=== PATIENT | female | born 1985 | race Hispanic/Latino ===

== ENCOUNTER 2018-02-27 08:35 | Inpatient (IN) | payer BC ==
--- NOTE | 2018-02-27 09:01 | ED PDOC ---
Arrival/HPI - History of Present Illness Time/Duration: 1-3 hours Symptom Onset: Sudden Quality: Stabbing Activities at Onset: Light Context: Home <Thelma Stratton - Last Filed: 02/27/18 16:21> <Tobi Parsons DO - Last Filed: 02/27/18 16:46> - General Time Seen by Provider: 02/27/18 08:47 - History of Present Illness Narrative History of Present Illness (Text): 02/27/18 09:01 This is a 32 year old female with no PMH presenting with left knee pain that began today. Pain began suddenly while walking on flat surface and felt a twising sensation in the left anterior knee region and is currently rated 10/ 10. Patient admits to swelling in the left knee over the last month but no pain. Patient denies trauma to the area, and increase in daily routine. She is currently unable to put any weight on the knee due to pain. She had a stress fracture in the left knee five years ago while training for the [employer] but no issues since. Denies chest pain, calf tenderness, SOB, headaches, loss of sensation in the pelvic area and extremities, diarrhea and abdominal pain. (Thelma Stratton) Past Medical History - Provider Review Nursing Documentation Reviewed: Yes - Musculoskeletal/Rheumatological Hx Fractures: Yes (stress fracture to left knee and ankle) - Psychiatric Hx Substance Use: No <Thelma Stratton - Last Filed: 02/27/18 16:21> Family/Social History - Physician Review Nursing Documentation Reviewed: Yes Family/Social History: Unknown Family HX Smoking Status: Never Smoked Hx Alcohol Use: No Hx Substance Use: No <Thelma Stratton - Last Filed: 02/27/18 16:21> Allergies/Home Meds <Thelma Stratton - Last Filed: 02/27/18 16:21> <Tobi Parsons DO - Last Filed: 02/27/18 16:46> Allergies/Adverse Reactions: Allergies No Known Allergies Allergy (Verified 02/27/18 08:46) Home Medications: Home Meds Medication Instructions Recorded Confirmed No Known Home Med 02/27/18 02/27/18 Review of Systems - Physician Review All systems were reviewed & negative as marked: Yes - Review of Systems Constitutional: Normal Eyes: Normal. absent: Vision Changes, Photophobia, Eye Pain, Other ENT: Normal Respiratory: Normal Cardiovascular: Normal Gastrointestinal: Normal Genitourinary Female: Normal Musculoskeletal: Joint Swelling. absent: Arthralgias Skin: Normal Neurological: Normal. absent: Headache, Dizziness Psychiatric: Normal <LamonteRadha ornelasarun - Last Filed: 02/27/18 16:21> Physical Exam Vital Signs Reviewed: Yes Temperature: Afebrile Blood Pressure: Normal Pulse: Regular Respiratory Rate: Normal Appearance: Positive for: Well-Appearing, Non-Toxic, Comfortable Pain Distress: None Mental Status: Positive for: Alert and Oriented X 3 - Systems Exam Head: Present: Atraumatic, Normocephalic Pupils: Present: PERRL Extroacular Muscles: Present: EOMI Conjunctiva: Present: Normal Mouth: Present: Moist Mucous Membranes Neck: Present: Normal Range of Motion Respiratory/Chest: Present: Clear to Auscultation, Good Air Exchange. No: Respiratory Distress, Accessory Muscle Use Cardiovascular: Present: Regular Rate and Rhythm, Normal S1, S2, Peripheal Pulses Present. No: Murmurs Abdomen: No: Tenderness, Distention, Peritoneal Signs Back: Present: Normal Inspection Upper Extremity: Present: Normal Inspection. No: Cyanosis, Edema Lower Extremity: Present: NORMAL PULSES, Swelling, Other (anterior left knee swelling and tenderness). No: CALF TENDERNESS Neurological: Present: Speech Normal, Motor Func Grossly Intact, Normal Sensory Function Skin: Present: Warm, Dry, Normal Color. No: Rashes Psychiatric: Present: Alert, Oriented x 3, Normal Insight, Normal Concentration <LamontececiRadhaarun - Last Filed: 02/27/18 16:21> Vital Signs Temp Pulse Resp BP Pulse Ox 02/27/18 15:26 70 18 90/58 L 98 02/27/18 11:52 98.6 F 72 18 97/59 L 98 02/27/18 08:47 98.1 F 95 H 18 126/66 97 Medical Decision Making <LamontececiThelma - Last Filed: 02/27/18 16:21> <Tobi Parsons DO - Last Filed: 02/27/18 16:46> ED Course and Treatment: 02/27/18 09:07 This is a 32 year old female with no PMH presents with left knee pain that began today. Differential: left knee fracture Plan: Xray and CT Progress: Called ortho, requested MRI. Will admit, surgery tomorrow. (Thelma Stratton) A 32 year old female with left knee pain. In agreement with resident note, which includes further HPI details. Patient was seen and evaluated with resident , came up with plan and treatment together. Attending note: Spoke with Dr. Blanchard regarding case. Patient to be brought to OR tomorrow as per ortho PA. Patient admitted to Dr. Sims on GMF. ( Tobi Parsons DO) - Lab Interpretations Lab Results: 02/27/18 12:50 02/27/18 12:50 Lab Results 02/27/18 12:50: Sodium 141, Potassium 4.2, Chloride 107, Carbon Dioxide 21, Anion Gap 17, BUN 16, Creatinine 0.7, Est GFR ( Amer) > 60, Est GFR (Non- Af Amer) > 60, Random Glucose 96, Calcium 9.3, Total Bilirubin 1.3, AST 22, ALT 19, Alkaline Phosphatase 43, Total Protein 7.7, Albumin 4.6, Globulin 3.1, Albumin/Globulin Ratio 1.5 02/27/18 12:50: PT 12.3, INR 1.07, APTT 26.1 02/27/18 12:50: WBC 8.4, RBC 4.53, Hgb 13.8, Hct 39.7, MCV 87.6, MCH 30.5, MCHC 34.8, RDW 12.1, Plt Count 358, MPV 9.4, Gran % 59.1, Lymph % (Auto) 32.6, [place] % (Auto) 5.8, Eos % (Auto) 2.0, Baso % (Auto) 0.5, Gran # 4.95, Lymph # (Auto) 2.7, [place] # (Auto) 0.5, Eos # (Auto) 0.2, Baso # (Auto) 0.04 - RAD Interpretation Radiology Orders: 02/27/18 08:58 KNEE WITH PATELLA LEFT 3 VIEW [RAD] Stat 02/27/18 10:11 EXT LOWER W/O CONTRAST LEFT [CT] Stat 02/27/18 11:44 KNEE W/O CONTRAST LEFT [MRI] Stat - Medication Orders Current Medication Orders: Sodium Chloride (Sodium Chloride 0.9%) 1,000 mls @ 60 mls/hr IV .[id number] JOSE G Oxycodone/Acetaminophen (Percocet 5/325 Mg Tab) 1 tab PO Q4H PRN PRN Reason: Pain, moderate (4-7) Stop: 03/02/18 14:01 Discontinued Medications Ibuprofen (Motrin Tab) 600 mg PO STAT STA Stop: 02/27/18 08:59 Last Admin: 02/27/18 12:38 Dose: Not Given Non-Admin Reason: Patient Refused - PA / HAMMER DRIVER / Resident Statement MANJINDER has reviewed & agrees with the documentation as recorded. MANJINDER has examined the patient and agrees with the treatment plan. <Thelma Stratton - Last Filed: 02/27/18 16:21> - Scribe Statement The provider has reviewed the documentation as recorded by the Scribe <Tobi Parsons DO - Last Filed: 02/27/18 16:46> - Scribe Statement Brittni Doe Provider Scribe Attestation: All medical record entries made by the Scribe were at my direction and personally dictated by me. I have reviewed the chart and agree that the record accurately reflects my personal performance of the history, physical exam, medical decision making, and the department course for this patient. I have also personally directed, reviewed, and agree with the discharge instructions and disposition. (Tobi Parsons DO) Disposition/Present on Arrival - Present on Arrival Any Indicators Present on Arrival: No History of DVT/PE: No History of Uncontrolled Diabetes: No Urinary Catheter: No History of Decub. Ulcer: No History Surgical Site Infection Following: None - Disposition Have Diagnosis and Disposition been Completed?: Yes Disposition Time: 16:30 Patient Plan: Admission <Thelma Stratton - Last Filed: 02/27/18 16:21> - Disposition Disposition Time: 11:50 <Tobi Parsons DO - Last Filed: 02/27/18 16:46> - Disposition Diagnosis: Left knee injury Disposition: HOSPITALIZED Patient Problems: Current Active Problems Problem Status Onset Left knee injury Acute Osteochondral defect of femoral condyle Acute Locked knee Acute Condition: STABLE
--- NOTE | 2018-02-27 11:30 | CT ---
Date of service: 02/27/2018 PROCEDURE: CT of the left knee without contrast HISTORY: left knee pain r/o fx COMPARISON: TECHNIQUE: CT of the left knee was performed with sagittal and coronal reconstructions. FINDINGS: There is a large osteochondral defect in the medial femoral condyle involving the lateral articular surface. The defect measures 25 mm anterior to posterior and 5 mm in height and 12 mm in width. There is a a bony fragment within the osteochondral defect measuring 6 mm. There is a loose body adjacent to the tibial spine measuring 4 x 8 mm in size. IMPRESSION: Large osteochondral defect in the medial femoral condyle with associated loose body
--- NOTE | 2018-02-27 12:02 | RAD ---
Date of service: 02/27/2018 PROCEDURE: Left Knee Radiographs. HISTORY: Pain. COMPARISON: None. FINDINGS: BONES: There is a large osteochondral defect in the medial femoral condyle with an associated loose body JOINTS: Normal. No osteoarthritis. JOINT EFFUSION: None. OTHER FINDINGS: None. IMPRESSION: There is a large osteochondral defect in the medial femoral condyle with an associated loose body
[2018-02-27 12:59] LABS: BASO # 0.04 K/mm3 (0.0-2.0); BASO % 0.5 % (0.0-3.0); EOS # 0.2 (0.0-0.7); GRAN # 4.95 (1.4-6.5); GRAN % 59.1 % (50.0-68.0); HEMOGLOBIN 13.8 g/dL (12.0-16.0); LYMPH # 2.7 (1.2-3.4); LYMPH % 32.6 % (22.0-35.0); MEAN CELL VOLUME 87.6 fl (80.0-105.0); MEAN CORPUSCULAR HEMOGLOBIN 30.5 pg (25.0-35.0); MEAN CORPUSCULAR HGB CONC 34.8 g/dl (31.0-37.0); MEAN PLATELET VOLUME 9.4 fl (7.0-11.0); MONO # 0.5 (0.1-0.6); MONO % 5.8 % (1.0-6.0); RBC 4.53 10^6/uL (3.5-6.1); RED CELL DISTRIBUTION WIDTH 12.1 % (11.5-14.5); WHITE BLOOD COUNT 8.4 10^3/ul (4.5-11.0)
[2018-02-27 13:11] LABS: ALB/GLOB RATIO 1.5 (1.1-1.8); ALBUMIN 4.6 g/dL (3.0-4.8); ALT/SGPT 19 U/L (7-56); AST/SGOT 22 U/L (14-36); BLOOD UREA NITROGEN 16 mg/dL (7-21); CALCIUM 9.3 mg/dL (8.4-10.5); GFR AFRICAN-AMERICAN > 60; GFR NON-AFRICAN AMERICAN > 60
[2018-02-27 13:13] LABS: INR 1.07 (0.93-1.08); PARTIAL THROMBOPLASTIN TIME 26.1 Seconds (25.1-36.5); PROTHROMBIN TIME 12.3 SECONDS (9.4-12.5)
--- NOTE | 2018-02-27 13:49 | CP.PCM.CON ---
History of Present Illness - History of Present Illness History of Present Illness: Orthopedic consultation Dr. Blanchard 32F complains of severe left knee pain since this morning. Patient states she was getting ready in the morning as usual, and she felt severe pain in knee and heard crunching sound and after that was unable to walk or straighten her knee. She says she has been getting knee swelling mild off and on for last month without any pain or disability. She denies any recent trauma or falls. She says 6 years ago, she had knee injury and was diagnosed with "stress fracture' which she was seen and treated with PT and it improved. She does not have MRI or copy , patient was instructed to try to obtain results. No other pain, denies numbness/tingling/denies fever/chills Review of Systems - Review of Systems All systems: reviewed and no additional remarkable complaints except - Musculoskeletal Musculoskeletal: As Per HPI Past Patient History - Infectious Disease Hx of Infectious Diseases: None - Past Medical History & Family History Past Medical History?: No Past Family History: Reviewed and not pertinent - Past Social History Smoking Status: Never Smoked - MUSCULOSKELETAL/RHEUMATOLOGICAL Hx Fractures: Yes (stress fracture to left knee and ankle) - PSYCHIATRIC Hx Substance Use: No - SURGICAL HISTORY Hx Surgeries: No Meds Allergies/Adverse Reactions: Allergies Allergy/AdvReac Type Severity Reaction Status Date / Time No Known Allergies Allergy Verified 02/27/18 08:46 Physical Exam - Constitutional Appears: Well, No Acute Distress - Head Exam Head Exam: ATRAUMATIC - Respiratory Exam Respiratory Exam: NORMAL BREATHING PATTERN - Cardiovascular Exam Additional comments: +DP/PT pulses - Extremities Exam Additional comments: Left knee: ROM 30-full flexion. Severe pain with attempts at extension, mild joint effusion, sensation intact, non tender, no erythema, no laxity to varus/ valgus/jennifer/ant/post drawer, severe pain with mcmurrays. no patellar apprehension - Neurological Exam Neurological exam: Alert, Oriented x3 - Psychiatric Exam Psychiatric exam: Normal Affect, Normal Mood - Skin Skin Exam: Dry, Intact, Normal Color, Warm Results - Vital Signs Recent Vital Signs: Last Vital Signs Temp 98.6 F 02/27/18 11:52 Pulse 72 02/27/18 11:52 Resp 18 02/27/18 11:52 BP 97/59 L 02/27/18 11:52 Pulse Ox 98 02/27/18 11:52 - Labs Result Diagrams: 02/27/18 12:50 02/27/18 12:50 - Impressions Impression: Patient Name / ID : NINOSKA MADRID / [id number] Exam Date : 02/27/2018 13:32:51 ( Approved ) Study Comment : Sex / Age : F / 32Y Creator : Derek Rahman MD Dictator : Derek Rahman MD Fusing Machine Operator : Head Charrer : Derek Rahman MD Approver2 : Report Date : 02/27/2018 14:21:03 My Comment : Date of service: 02/27/2018 PROCEDURE: MRI Left Knee HISTORY: Pain. COMPARISON: None available. TECHNIQUE: Multiecho multiplanar sequences were performed through the left knee. FINDINGS: ANTERIOR CRUCIATE LIGAMENT:: Intact. POSTERIOR CRUCIATE LIGAMENT:: Intact. MEDIAL MENISCUS:: Intact. LATERAL MENISCUS:: Intact. MEDIAL COLLATERAL LIGAMENT:: Intact. LATERAL COLLATERAL LIGAMENT COMPLEX:: Intact. QUADRICEPS TENDON:: Intact. PATELLAR TENDON:: Intact. CARTILAGE:: There is thinning of the articular cartilage in the medial compartment. JOINT FLUID:: There is a moderate-sized joint effusion. OSSEOUS STRUCTURES:: There is a large osteochondral defect in the lateral inferior corner of the medial femoral condyle. This measures 24 mm anterior to posterior by 14 mm wide by 7 mm in height. There is a a bony fragment within the osteochondral defect as well as a loose body near the midline adjacent to the tibial spine. OTHER FINDINGS: None. IMPRESSION: Large osteochondral defect in the medial femoral condyle with associated loose body and moderate joint effusion tient Name / ID : NINOSKA MADRID / [id number] Exam Date : 02/27/2018 10:29:53 ( Approved ) Study Comment : Sex / Age : F / 32Y Creator : Derek Rahman MD Dictator : Derek Rahman MD Fusing Machine Operator : Head Charrer : Derek Rahman MD Approver2 : Report Date : 02/27/2018 11:28:35 My Comment : Date of service: 02/27/2018 PROCEDURE: CT of the left knee without contrast HISTORY: left knee pain r/o fx COMPARISON: TECHNIQUE: CT of the left knee was performed with sagittal and coronal reconstructions. FINDINGS: There is a large osteochondral defect in the medial femoral condyle involving the lateral articular surface. The defect measures 25 mm anterior to posterior and 5 mm in height and 12 mm in width. There is a a bony fragment within the osteochondral defect measuring 6 mm. There is a loose body adjacent to the tibial spine measuring 4 x 8 mm in size. IMPRESSION: Large osteochondral defect in the medial femoral condyle with associated loose body Patient Name / ID : NINOSKA MADRID / [id number] Exam Date : 02/27/2018 09:36:06 ( Approved ) Study Comment : Sex / Age : F / 32Y Creator : Derek Rahman MD Dictator : Derek Rahman MD Fusing Machine Operator : Head Charrer : Derek Rahman MD Approver2 : Report Date : 02/27/2018 12:01:13 My Comment : Date of service: 02/27/2018 PROCEDURE: Left Knee Radiographs. HISTORY: Pain. COMPARISON: None. FINDINGS: BONES: There is a large osteochondral defect in the medial femoral condyle with an associated loose body JOINTS: Normal. No osteoarthritis. JOINT EFFUSION: None. OTHER FINDINGS: None. IMPRESSION: There is a large osteochondral defect in the medial femoral condyle with an associated loose body Assessment & Plan (1) Osteochondral defect of femoral condyle Assessment and Plan: MRI pending NPO p MN for OR 02/28 2pm for left knee arthroscopy as per Dr. Blanchard labs reviewed NWB ice elevation d/w Dr. Blanchard, agrees with above Status: Acute (2) Locked knee Status: Acute
--- NOTE | 2018-02-27 14:22 | MRI ---
Date of service: 02/27/2018 PROCEDURE: MRI Left Knee HISTORY: Pain. COMPARISON: None available. TECHNIQUE: Multiecho multiplanar sequences were performed through the left knee. FINDINGS: ANTERIOR CRUCIATE LIGAMENT:: Intact. POSTERIOR CRUCIATE LIGAMENT:: Intact. MEDIAL MENISCUS:: Intact. LATERAL MENISCUS:: Intact. MEDIAL COLLATERAL LIGAMENT:: Intact. LATERAL COLLATERAL LIGAMENT COMPLEX:: Intact. QUADRICEPS TENDON:: Intact. PATELLAR TENDON:: Intact. CARTILAGE:: There is thinning of the articular cartilage in the medial compartment. JOINT FLUID:: There is a moderate-sized joint effusion. OSSEOUS STRUCTURES:: There is a large osteochondral defect in the lateral inferior corner of the medial femoral condyle. This measures 24 mm anterior to posterior by 14 mm wide by 7 mm in height. There is a a bony fragment within the osteochondral defect as well as a loose body near the midline adjacent to the tibial spine. OTHER FINDINGS: None. IMPRESSION: Large osteochondral defect in the medial femoral condyle with associated loose body and moderate joint effusion
[2018-02-27 16:37] VITALS: BMI 19.2
[2018-02-27] MEDS: Oxycodone/Acetaminophen 5/325 mg Tab PO PRN (22:48)
[2018-02-28] MEDS ORDERED: Sodium Chloride 0.9% 1,000 ML IV SCH ×2 (07:00→08:45)
--- NOTE | 2018-02-28 10:12 | HP ---
DATE OF EXAM: 02/27/2018 REASON FOR ADMISSION: Left knee fall with severe pain and fracture. HISTORY OF PRESENT ILLNESS: A 32-year-old female, healthy, has no medical problems. No past medical history of any medical problems. She came in because she fell with resulting left knee severe pain and swelling and her knee got locked, cannot straighten up due to severity of pain and could not get it straight. She could not walk. Came to the emergency room for evaluation. Denied any dizziness, any chest pain, any dyspnea or any fever or chills or nausea or vomiting. PAST MEDICAL HISTORY: According to the patient, she has no significant past medical history. ALLERGIES: NO KNOWN ALLERGY. SOCIAL HISTORY: She does never use any alcohol or any substance abuse and she never smoked. Social history nonsignificant. REVIEW OF SYSTEMS: She is very active, young. No medical problems. Review of systems is negative. Her menses comes regular. Last menses was finished on 02/23/2018. Otherwise, negative. PHYSICAL EXAMINATION: GENERAL: The patient is alert, awake, oriented, lying in bed supine with left knee pillow under it. She has no distress. She is alert, awake, oriented x3. VITAL SIGNS: Temperature 98.1, heart rate is 95, blood pressure 126/66, respirations 18, saturating 97%. HEAD AND NECK: Normal. No JVD. No thyromegaly. CHEST: Clear bilaterally. CARDIAC: First sound and second sound normal. No murmur, rub or gallop. ABDOMEN: Soft, nontender. EXTREMITIES: There is no edema. NEUROLOGICAL: Normal. MUSCULOSKELETAL: Left knee pain, it is mildly swollen, tender and very difficult with ambulating due to severe pain. LABORATORY STUDY: Sodium 141, potassium 4.2, chloride 107, bicarb 21, BUN 16, creatinine 0.7. Kidney functions, above 60% glomerular filtration rate. Blood sugar 96, calcium 9.3, bilirubin normal at 1.3. AST, ALT, alk phos all normal. Albumin, globulin are normal. Her PT, PTT are normal. Her urine test was negative. The patient also had CT of her lower extremity, which showed large osteochondral defect in the medial condyle with associated loose body. MRI also was done and it shows large osteochondral defect in the medial femoral condyle with associated loose body and moderate joint effusion. The patient will get a chest x-ray and an EKG, although the patient is really physically stable. She is medically stable for surgery with low risk of cardiovascular and pulmonary complications. ADMITTING DIAGNOSES: 1. Left knee fracture femoral condyle defect with loose body that led to lock the knee. 2. Moderate joint effusions. PLAN: To admit the patient. SCDs on. She got dose of heparin 5000 subcu x1 and for DVT prophylaxis and she is medically stable for laparoscopic left knee surgery with extraction of that loose body. We will continue current therapy. We will follow up with the other otm consultant. Dada Sims MD
--- NOTE | 2018-02-28 10:17 | RAD ---
Date of service: 02/28/2018 HISTORY: pre op COMPARISON: No prior. TECHNIQUE: Chest PA and lateral FINDINGS: LUNGS: No active pulmonary disease. PLEURA: No significant pleural effusion identified. No pneumothorax apparent. CARDIOVASCULAR: Normal. OSSEOUS STRUCTURES: No significant abnormalities. VISUALIZED UPPER ABDOMEN: Normal. OTHER FINDINGS: None. IMPRESSION: No active disease.
[2018-02-28] MEDS ORDERED: Lidocaine 1% w Epi 1:100,000 Inj ONE (12:32)
[2018-02-28] MEDS ORDERED: Lidocaine 1% Inj (20ml) ONE ×2 (13:21→13:36)
[2018-02-28] MEDS ORDERED: EPINEPHrine 1 mg/ml (1:1000) Inj ONE (13:24)
[2018-02-28] MEDS ORDERED: Midazolam 2 MG/2 ML VIAL ONE (13:35)
[2018-02-28] MEDS ORDERED: Propofol 10 mg/ml Inj (20 ML) ONE (13:36)
[2018-02-28] MEDS ORDERED: Rocuronium 10 mg/ml (5 ml) ONE ×2 (13:38→14:39)
[2018-02-28] MEDS ORDERED: Succinylcholine 200 mg/10 ml Inj IV ONE (13:38)
[2018-02-28] MEDS ORDERED: Phenylephrine 10 mg/ml Inj ONE (14:03)
[2018-02-28] MEDS ORDERED: Bupivacaine 0.5% Inj(30mL) ONE (14:30)
[2018-02-28] MEDS ORDERED: ePHEDrine 50 mg/ml Inj ONE (14:36)
[2018-02-28] MEDS ORDERED: MethylPREDNISolone Depo 40 mg/ml Inj ONE (15:07)
[2018-02-28] MEDS ORDERED: Bacitracin Ointment 30 GM TUBE ONE (15:24)
[2018-02-28] MEDS ORDERED: Morphine 4 mg/ml ISec ONE (15:29)
[2018-02-28] MEDS ORDERED: MethylPREDNISolone Depo 40 mg/ml Inj IM ONE (15:30)
[2018-02-28] MEDS: Morphine 1 mg/ml preservative-free Inj(Duramorph) ONE ×2 (15:30→17:17)
[2018-02-28] MEDS ORDERED: Neostigmine Methylsulfate 3mg/3ml Syringe IV ONE (15:33)
[2018-02-28] MEDS ORDERED: HYDROmorphone 0.5 mg/0.5 ml ISec IVP PRN ×2 (15:52→15:59)
[2018-02-28] MEDS ORDERED: HYDROmorphone 0.5 mg/0.5 ml ISec ONE (15:54)
[2018-02-28] MEDS ORDERED: Lactated Ringer's 1,000 ML IV SCH (16:00)
--- NOTE | 2018-02-28 16:28 | PCM.SURG1 ---
Surgeon's Initial Post Op Note - Surgeon's Notes Surgeon: Lo Clay Digger: RAISSA Rudolph Type of Anesthesia: General Endo Anesthesia Administered By: Dr Johnson Pre-Operative Diagnosis: lossebodies L knee. oseochondritis dissecans L knee Operative Findings: osteochondritis dissecans L knee. osteochondral defect L knee. loose bodies L knee. tear medial meniscus/tear lateral meniscus. tricompartmental synovitis Post-Operative Diagnosis: as above Operation Performed: arthroscopic microfracture/abrasion arthroplasty L knee. arthroscopic excision loose bodies x2. arthroscopic partial tricompartmental synovectomy. arthroscopic partial medial/partial lateral meniscectomy. intraarticular injection. elham Esquivel dressing and knee immobilizer Specimen/Specimens Removed: loose bodies x 2. synovium/cartilage/bone Estimated Blood Loss: EBL {In ML}: 10 Blood Products Given: N/A Drains Used: No Drains Post-Op Condition: Fair Date of Surgery/Procedure: 02/28/18 Time of Surgery/Procedure: 14:00 (time in room 1330)
--- NOTE | 2018-02-28 20:14 | CARD ---
APPROVED REPORT Date of service: 02/28/2018 EKG Measurement Heart [id number] <Conclusion> Normal sinus rhythm Normal ECG
[2018-02-28] MEDS ORDERED: DiphenhydrAMINE 50 mg/ml Inj IVP STA (20:19)
--- NOTE | 2018-03-01 03:37 | OP ---
PROCEDURE DATE: 02/28/2018 PREOPERATIVE DIAGNOSES: 1. Locked left knee. 2. Loose bodies, left knee. 3. Osteochondral defect, left medial femoral condyle. POSTOPERATIVE DIAGNOSES: 1. Osteochondral defect/osteochondritis dissecans, left knee medial femoral condyle. 2. Loose bodies, left knee. 3. Tricompartmental synovitis. 4. Tear medial meniscus, tear lateral meniscus, tricompartmental synovitis. OPERATIONS PERFORMED: 1. Arthroscopic microfracture/abrasion arthroplasty, left knee. 2. Arthroscopic excision of loose bodies x2. 3. Arthroscopic partial tricompartmental synovectomy. 4. Arthroscopic partial medial and partial lateral meniscectomy. 5. Intraarticular injection. 6. Application of Fernando-Esquivel compression dressing and knee immobilizer. SURGEON: Damon Blanchard MD INTERNATIONAL ACCOUNT MANAGER: Anne Gutierrez, certified registered nursing child life assistant. TYPE OF ANESTHESIA: General endotracheal anesthesia. ANESTHESIA ADMINISTERED BY: Dr. Johnson. COMPLICATIONS: None. DRAINS: None. ESTIMATED BLOOD LOSS: Approximately 10 mL. POSTOPERATIVE CONDITION: Stable. INCISION TIME: Roughly 1400. TIME IN THE ROOM: 1330. OPERATIVE INDICATIONS: Edwina Alvarez is a 32-year-old woman who presents with a locked left knee to [facility]. The patient is an employee of the [employer] and the patient presents with a long history of knee pain. The patient had an acute torsion injury and was unable to bear weight, went to the emergency room at [facility]. The patient was admitted, MRI examination was positive for loose bodies, osteochondral defect, marked synovitis. Pros, cons, risks, and benefits of arthroscopic surgery and approach of this problem were discussed. The concept that we must approach this problem in a stage procedure, the first part would be the surgical procedure today to unlock the knee and get the patient out of pain and securing the effusion, the second part would be addressing the large essentially 24 mm x 18 mm chondral defect, full thickness of the medial femoral condyle. The possibility of mechanical failure, infection, thromboembolic disease, secondary or tertiary surgery was discussed. The patient can no longer withstand the discomfort and wished the surgery to be accomplished. DESCRIPTION OF PROCEDURE: After having obtained informed consent from the patient in the presence of her mother, after the satisfactory induction of general endotracheal anesthesia by Dr. Johnson, after having identifying side, site, and procedure, and a critical pause/time-out, the patient identified as Edwina Alvarez, in the supine position with all bony prominences well padded. The left lower extremity was prepped and free draped in the usual fashion for lower extremity surgery. The tourniquet had been applied, but was not yet inflated. The knee godinez was employed as well. After exsanguinating the limb using a 6-inch Esmarch bandage, the tourniquet which had been applied is inflated to 350 mmHg. An arthroscopic portal was made one thumbsbreadth lateral to the inferior pole of the patella using #11 blade followed by spreading, following by introduction of the blunt trocar with the arthroscope anterolaterally. Triangulation is accomplished anteromedially using #18 gauge spinal needle, followed by #11 blade, followed by spreading, followed by introduction of a blunt trocar. With the arthroscope anterolaterally, a careful partial tricompartmental synovectomy was accomplished both to improve visualization and to ablate irritative tissue. With the arthroscope anterolaterally, there were found to be two discrete loose bodies, one is in the area of the osteochondral defect and one is in the area of the intercondylar notch. With the arthroscope anterolaterally, there was found to be an exuberant synovitis and a third portal was accomplished anteroseptally using a #18 gauge spinal needle, followed by #11 blade, followed by spreading, followed by introduction of the blunt trocar. With the arthroscope anterolaterally, a careful and partial tricompartmental synovectomy was accomplished both to improve visualization and to ablate irritative tissue. With the arthroscope anterolaterally, the first loose body was identified and it was grasped through the anteroseptal portal with a straight clamp and it was dissected using the arthroscopic wand. The first arthroscopic loose body was removed. With the arthroscope anterolaterally, a careful partial tricompartmental synovectomy was completed. Bleeding points were controlled with the arthroscopic wand. The second fragment was carefully dissected and migrates to the lateral gutter. With the knee at approximately 30 degrees short of extension, with the arthroscope anteromedially through the anteroseptal portal, using a curved clamp at this point in time, the second loose body was removed carefully. The wound was sterilely irrigated. With the surgeon exerting a gentle valgus stress, there was found to be a tear of the inner free edge of the medial meniscus, which was not clearly identified on MRI. Please refer to the video photographs. With the arthroscope anterolaterally, using a combination of the straight biting basket forceps and the side biting basket forceps, a partial medial meniscectomy was accomplished. Great care was taken not to injure the medial collateral ligament with the arthroscope anteromedially using the arthroscopic wand at a very low thermal setting. The inner free edge of the meniscus was smoothed to complete the partial medial meniscectomy. With the arthroscope anterolaterally, there was found to be a tear of the inner free edge of the lateral meniscus. Using a combination of the straight biting basket forceps and the side biting basket forceps, a partial lateral meniscectomy was accomplished. With the arthroscope anterolaterally, using the arthroscopic wand, inner free edge was smoothed using the arthroscopic wand. With the arthroscope anterolaterally, a careful partial tricompartmental synovectomy was completed. Bleeding points were controlled with the arthroscopic wand. With the arthroscope anterolaterally, using the curved arthroscopic pick, a microfracture was accomplished in a honeycomb-type array and a microfracture and abrasion arthroplasty was accomplished as well. With the arthroscope anteromedially, the arthroscopic rafiq was placed and the bed was burred using the arthroscopic rafiq for the abrasion arthroplasty. A combination of the abrasion arthroplasty and microfracture having been accomplished, loose bodies having been removed, partial medial and lateral meniscectomies having been accomplished, partial tricompartmental synovectomy is completed, bleeding points were controlled with the arthroscopic wand. Portals were closed with interrupted Vicryl and nylon. Intraarticular injection is offered using Marcaine, Duramorph, and Depo-Medrol. Fernando Esquivel compression dressing and knee immobilizer was applied. Damon Blanchard MD
[2018-03-01] MEDS: Oxycodone/Acetaminophen 5/325 mg Tab PO PRN ×2 (06:25→11:07)
[2018-03-01 08:18] VITALS: RESP 20
--- NOTE | 2018-03-01 12:55 | PN ---
DATE: 02/28/2018 SUBJECTIVE: The patient is status post surgery arthroscopic, cleaning of her left knee status post fall with loose bodies. The patient complained of left knee pain. She feels nauseous. The patient was given Zofran; otherwise she is stable and no other complaint. PHYSICAL EXAMINATION: VITAL SIGNS: Temperature is 98.2, heart rate is 72, blood pressure 107/60, respirations 17, and saturating 98% on room air. HEAD AND NECK: Normal. No JVD. No thyromegaly. CHEST: Clear bilaterally. CARDIAC: First sound and second sound normal. No murmur, rub or gallop. ABDOMEN: Soft, nontender. EXTREMITIES: No edema. Left knee was covered and SCDs were on. IMPRESSION AND PLAN: 1. Status post left knee condylar fracture with loose bodies status post arthroscopic surgery, doing better. Continue Percocet p.r.n. The patient continues better, will be discharged in the morning. 2. Nausea, probably related to anesthesia, Zofran, Protonix and will follow up clinically. No other complaints. Continue current therapy. Dada Sims MD
[2018-03-01 16:51] VITALS: BP 102/54; PULSE 67; TEMP 98.7; O2SAT 100
== END 2018-03-01 17:58 | disposition home or self-care (01) | DRG 489 ==
LOC: ED 08:35 → ERH 13:32 → 5RSO 15:43
PROVIDERS: ADMIT Internal Medicine; ATTEND Internal Medicine
PROC: 0SCD4ZZ Extirpation of Matter from Left Knee Joint, Percutaneous Endoscopic Approach (ICD-10-PCS; 2018-02-28)
PROC: 0SBD4ZZ Excision of Left Knee Joint, Percutaneous Endoscopic Approach (ICD-10-PCS; 2018-02-28)
PROC: 0SBD4ZZ Excision of Left Knee Joint, Percutaneous Endoscopic Approach (ICD-10-PCS; principal; 2018-02-28 14:00)
DX: M93.262 Osteochondritis dissecans, left knee (principal); M65.9 Synovitis and tenosynovitis, unspecified; M25.462 Effusion, left knee; S83.282A Other tear of lateral meniscus, current injury, left knee, initial encounter; S83.242A Other tear of medial meniscus, current injury, left knee, initial encounter